=== PATIENT | male | born 1955 | race Caucasian/White ===

== ENCOUNTER 2016-12-01 07:10 | Emergency (ER) | payer OTHER ==
[2016-12-01 07:29] VITALS: BP 151/82
--- NOTE | 2016-12-01 08:01 | RAD ---
INDICATION: Right knee pain. TECHNIQUE: 4 views of the right knee were obtained. FINDINGS: The bones are normal alignment. There is a small joint effusion. No fracture is seen. There is a partially calcified mass measuring 1.9 x 1.0 cm in size which projects overlying the suprapatella bursa. There is mild to moderate osteoarthritic change in the patellofemoral compartment. IMPRESSION: 1. SMALL JOINT EFFUSION, NO FRACTURE IS SEEN. 2. PARTIALLY CALCIFIED MASS PROJECTS OVER THE SUPRAPATELLA BURSA RECOMMEND A FOLLOW-UP MRI OF THE KNEE FOR FURTHER EVALUATION.
--- NOTE | 2016-12-01 08:15 | UC ---
Knee Pain HPI - HPI Summary HPI Summary: 61 yo male with right knee pin x 2 weeks Onset after twisting knee exercising worse yesterday after golf no buckling or locking up - History of Current Complaint Chief Complaint: UCLowerExtremity Stated Complaint: KNEE INJURY Time Seen by Provider: 12/01/16 07:28 Hx Obtained From: Patient Onset/Duration: Sudden Onset, Lasting Weeks Severity Currently: Mild Pain Intensity: 2 Pain Scale Used: 0-10 Numeric Character: Aching, Throbbing Aggravating Factor(s): Movement, Weight Bearing, Stairs Alleviating Factor(s): Rest Associated Signs And Symptoms: Positive: Negative Able to Bear Weight: Yes - Allergies/Home Medications Allergies/Adverse Reactions: Allergies Allergy/AdvReac Type Severity Reaction Status Date / Time No Known Allergies Allergy Verified 12/01/16 07:21 Home Medications: Home Medications Lisinopril/HCTZ 10.5(NF) [Zestoretic 10/12.5(NF)] 1 tab PO QPM 12/01/16 [ History Confirmed 12/01/16] Rosuvastatin Calcium [Crestor] 1 tab PO QPM 12/01/16 [History Confirmed 12/01/16 ] PMH/Surg Hx/FS Hx/Imm Hx Previously Healthy: Yes Endocrine History Of: Denies: Diabetes, Thyroid Disease Cardiovascular History Of: Reports: Hypertension Denies: Cardiac Disorders Respiratory History Of: Denies: COPD, Asthma GI/ History Of: Denies: Ulcer - Surgical History Surgical History: Yes Surgery Procedure, Year, and Place: Disolving of kidney stone - Family History Known Family History: Positive: Hypertension - Social History Alcohol Use: Occasionally Substance Use Type: None Smoking Status (MU): Never Smoked Tobacco - Immunization History Most Recent Influenza Vaccination: [id number] Season Review of Systems Constitutional: Negative Skin: Negative Eyes: Negative ENT: Negative Respiratory: Negative Cardiovascular: Negative Gastrointestinal: Negative Genitourinary: Negative Motor: Negative Neurovascular: Negative Musculoskeletal: Arthralgia Neurological: Negative Psychological: Negative All Other Systems Reviewed And Are Negative: Yes Physical Exam Triage Information Reviewed: Yes Appearance: Well-Appearing, No Pain Distress, Well-Nourished Vital Signs: Initial Vital Signs Temp 97.3 F 12/01/16 07:24 Pulse 60 12/01/16 07:24 Resp 18 12/01/16 07:24 BP 151/82 12/01/16 07:24 Pulse Ox 94 12/01/16 07:24 Eyes: Positive: Conjunctiva Clear ENT: Positive: Hearing grossly normal. Negative: Nasal congestion, Nasal drainage, Trismus, Muffled/hoarse voice Neck: Positive: Supple Respiratory: Positive: Lungs clear, Normal breath sounds, No respiratory distress, No accessory muscle use Cardiovascular: Positive: RRR Musculoskeletal: Positive: Other: - medial joint line pain stable joint normal gait Neurological: Positive: Alert Psychological Exam: Normal Skin Exam: Normal Knee Pain Course/Dx - Course Course Of Treatment: Pt advise that for further investigation of his complaints and the xr finding of the calcification he needed an MRI. He requested referral to Dr. Arguello - Differential Dx/Diagnosis Provider Diagnoses: right knee DJD. ? torn medial meniscus. calcified mass suprapatellar fossa ? etiology Discharge - Discharge Plan Condition: Stable Disposition: HOME Patient Education Materials: Knee Pain (ED) Referrals: Jonathon Arguello [Medical Doctor] - Additional Instructions: activity as tolerated ice twice daily aleve 2 pills daily with food as needed for the pain Your XR showed: mild to moderate arthritis a small effusion (fluid in joint) a calcified mass in the supra patellar bursa The radiologist has suggested an MRI for further evaluation certainly a torn meniscus could be the cause of your pain the cause of the calcification is unknown and the MRI is the best test to investigate this
== END 2016-12-01 08:24 | disposition home or self-care (01) ==
LOC: UCEAST 07:10
DX: M17.11 Unilateral primary osteoarthritis, right knee (principal); Z51.89 Encounter for other specified aftercare; I10 Essential (primary) hypertension
CPT/HCPCS: 99211; G0463

== ENCOUNTER 2018-09-27 15:20 | Emergency (ER) | payer BC, OTHER ==
--- NOTE | 2018-09-27 15:26 | UC ---
Hand/Wrist HPI - HPI Summary HPI Summary: 63 yo male presents with ?infection to LEFT thumb. He tells me that earlier this week he had some dry skin around his fingernail that cracked open. Over the last 2-3 days has noticed increased pain and swelling to the area with mild redness. He is concerned it is infected and is worried that it will spread down his finger. Denies fever, chills, numbness, tingling. - History Of Current Complaint Stated Complaint: THUMB PAIN Time Seen by Provider: 09/27/18 15:26 Hx Obtained From: Patient Onset/Duration: Gradual Onset Severity Initially: Mild Severity Currently: Mild Pain Intensity: 4 Pain Scale Used: 0-10 Numeric - Allergies/Home Medications Allergies/Adverse Reactions: Allergies Allergy/AdvReac Type Severity Reaction Status Date / Time No Known Allergies Allergy Verified 12/07/16 15:27 PMH/Surg Hx/FS Hx/Imm Hx Endocrine History: Dyslipidemia Cardiovascular History: Hypertension - Surgical History Surgical History: Yes Surgery Procedure, Year, and Place: Disolving of kidney stone. NASAL SURGERY - Family History Known Family History: Positive: Hypertension - Social History Lives: With Family Alcohol Use: Occasionally Substance Use Type: None Smoking Status (MU): Never Smoked Tobacco - Immunization History Most Recent Influenza Vaccination: [id number] Season Review of Systems All Other Systems Reviewed And Are Negative: Yes Constitutional: Positive: Negative Skin: Positive: Other - Left thumb cracked skin Respiratory: Positive: Negative Cardiovascular: Positive: Negative Neurovascular: Positive: Negative Neurological: Positive: Negative Psychological: Positive: Negative Physical Exam - Summary Physical Exam Summary: GENERAL: NAD. WDWN. No pain distress. SKIN: LEFT THUMB: Distal thumb with two <1mm areas of cracked skin. Mild edema and TTP. No erythema, drainage, or warmth. NECK: Supple. Nontender. No lymphadenopathy. CHEST: No accessory muscle use. Breathing comfortably and in no distress. CV: Pulses intact. Cap refill <2seconds NEURO: Alert. PSYCH: Age appropriate behavior. Triage Information Reviewed: Yes Vital Signs: Vital Signs: Temp Pulse Resp BP Pulse Ox 97.1 F 72 16 141/73 96 09/27/18 15:27 09/27/18 15:27 09/27/18 15:27 09/27/18 15:27 09/27/18 15:27 Vital Signs Reviewed: Yes Hand/Wrist Course/Dx - Course Course Of Treatment: Suspect superficial skin infection - mild. Discussed with pt to continue using epsom salt soaks and apply neosporin daily for the next few days - if symptoms do not improve in 2-3 days may start Keflex. - Differential Dx/Diagnosis Provider Diagnosis: Superficial skin infection Discharge - Sign-Out/Discharge Documenting (check all that apply): Patient Departure All imaging exams completed and their final reports reviewed: No Studies - Discharge Plan Condition: Stable Disposition: HOME Prescriptions: Cephalexin CAP* [Keflex CAP*] 500 mg PO BID #10 cap Patient Education Materials: Paronychia (ED) Referrals: Yarelis Garrido MD [Primary Care Provider] - Additional Instructions: If you develop a fever, shortness of breath, chest pain, new or worsening symptoms - please call your PCP or go to the ED. Your blood pressure was high at todays visit. Please see your primary provider within 4 weeks for recheck and re-evaluation. Continue with warm salt water/epsom salt soaks to your thumb - Billing Disposition and Condition Condition: STABLE Disposition: Home
[2018-09-27 15:36] VITALS: BP 141/73
== END 2018-09-27 15:42 | disposition home or self-care (01) ==
LOC: UCEAST 15:20
DX: L03.012 Cellulitis of left finger (principal); E78.5 Hyperlipidemia, unspecified; I10 Essential (primary) hypertension
CPT/HCPCS: 99212; G0463